=== PATIENT | female | born 1985 | race Caucasian/White ===

== ENCOUNTER → 2022-05-14 | Outpatient (CLI) | payer BC ==
[2022-05-14 10:39] VITALS: BP 107/71
--- NOTE | 2022-05-14 15:14 | Cardiology Stress Test Report ---
Stress Test Report Date of Procedure/Referring: PCP Deleted Admitting Physician Admitting Physician: Attending Physician: Valencia Francis Indications: CP Baseline Heart Rate: 55 Baseline Blood Pressure: Blood Pressure Systolic: 107 Blood Pressure Diastolic: 71 Baseline EKG: Baseline EKG: NSR Summary/Conclusion: Summary: In summary, the patient started exercising with a baseline heart rate, blood pressure and EKG mentioned above Patient was able to exercise for a total of 11 minutes on Raúl protocol, METs 12.1 Maximum heart rate 160 Maximum blood pressure 146/80 Stress EKG, Minimal nondiagnostic changes Recovery EKG , Return to baseline Conclusion: 1. Good exercise tolerance for a total of 11 minutes on Raúl protocol, 12.1 METs, achieving 88percent of maximum expected heart rate 2. Minimal nondiagnostic EKG changes with exercise returned to baseline during recovery 3. No arrhythmia was noted ROLAND Alicea MD May 14, 2022 15:14
== END ==
LOC: EDBD → CARD 09:39
PROVIDERS: ATTEND Physician Assistant
DX: R07.9 Chest pain, unspecified (principal)
CPT/HCPCS: 93017